=== PATIENT | male | born 1960 | race Caucasian/White ===

== ENCOUNTER → 2021-09-04 | Outpatient (CLI) | payer BC | LOC: HEART 5 09:25 | DX: R06.02 Shortness of breath (principal) | CPT/HCPCS: 94060; 94729 ==

== ENCOUNTER → 2021-10-17 | Outpatient (CLI) | payer BC | LOC: KOH-I 15:30 | DX: F17.210 Nicotine dependence, cigarettes, uncomplicated (principal) | CPT/HCPCS: 71271 ==

== ENCOUNTER → 2021-11-16 | Outpatient (CLI) | payer BC | LOC: HEART 5 15:00 | DX: I25.2 Old myocardial infarction (principal); I08.3 Combined rheumatic disorders of mitral, aortic and tricuspid valves | CPT/HCPCS: 93306 ==

== ENCOUNTER → 2021-12-12 | Outpatient (CLI) | payer BC | LOC: KOH-I 10:33 | DX: M79.672 Pain in left foot (principal); M76.892 Other specified enthesopathies of left lower limb, excluding foot | CPT/HCPCS: 73630 ==